=== PATIENT | female | born 1960 | race Caucasian/White ===

== ENCOUNTER 2019-10-31 15:18 | Outpatient (CLI) | payer OTHER, SELFPAY ==
--- NOTE | ~2019-10-31 | US_ITS ---
EXAMINATION: US thyroid DATE: 10/31/2019 15:54 INDICATION: Localized swelling, mass, and lump, neck. TECHNIQUE: Multiple ultrasound images of the thyroid were obtained. COMPARISON: None. FINDINGS: The right thyroid lobe measures 3.5 x 1.4 x 1.0 cm. The left thyroid lobe measures 8.4 x 2.5 x 3.5 c m. In the right thyroid lobe, there is a 10 mm solid, hypoechoic, rhkpb-oacl-gpax nodule with lobula jefe margin without echogenic foci (TI-RADS TR4). The left thyroid lobe is replaced by a nodule or con fluence of nodules that is/are solid, isoechoic, and cnjdy-sqpf-sadd without echogenic foci (TR3). IMPRESSION: 1. Thyroid nodules. Ultrasound-guided fine-needle aspiration of the left thyroid nodule is recommende d. Reviewed, dictated and finalized at location A. IMPRESSION: 1. Thyroid nodules. Ultrasound-guided fine-needle aspiration of the left thyroi d nodule is recommended.
== END 2019-10-31 15:19 | disposition home or self-care (01) ==
DX: R22.1 Localized swelling, mass and lump, neck (principal); E04.2 Nontoxic multinodular goiter
CPT/HCPCS: 76536

== ENCOUNTER 2019-11-14 13:06 | Outpatient (CLI) | payer OTHER, SELFPAY ==
--- NOTE | ~2019-11-14 | US_ITS ---
EXAMINATION: US FNA w image guidance DATE: 11/14/2019 14:07 INDICATION: Left thyroid mass TECHNIQUE: A time-out was performed to verify the patient's name, date of , and procedure to be performed . The procedure and its benefits and risks were discussed with the patient. Risks specifically discus sed included bleeding and infection. The patient understood the risks and agreed to proceed. The neck was prepped and draped in the usual sterile manner. 4 mL 1% lidocaine was used for local anesthesia . 6 passes were made with a 25G needle into the lesion. Appropriate needle location was documented with continuous sonographic guidance. The specimens were passed to the environmental health technologist in the room. A sterile bandage was applied. There were no immediate complications. FINDINGS: Grayscale ultrasound images demonstrate biopsy needles advanced into a large isoechoic solid mass occ upying the majority of the left thyroid lobe. IMPRESSION: 1. Successful ultrasound-guided fine needle aspiration of the previous noted large TI-RADS 3 mass oc cupying the majority left thyroid lobe. Reviewed, dictated and finalized at location A. IMPRESSION: 1. Successful ultrasound-guided fine needle aspiration of the previous noted l arge TI-RADS 3 mass occupying the majority left thyroid lobe.
== END 2019-11-14 13:07 | disposition home or self-care (01) ==
LOC: ANHIMG 13:17
DX: E04.1 Nontoxic single thyroid nodule (principal)
CPT/HCPCS: 10005; 88173; 88305

== ENCOUNTER 2021-01-28 14:14 | Outpatient (CLI) | payer OTHER, SELFPAY ==
--- NOTE | ~2021-01-28 | MM_ITS ---
EXAMINATION: MM screening radhika BI w denisse HISTORY: Screening mammogram TECHNIQUE: Craniocaudal and mediolateral oblique 3-D tomosynthesis images were obtained and synthetic 2-D images were generated. CAD analysis was submitted and interpreted. COMPARISON: 10/17/2016, 12/18/2011 bilateral screening mammogram examinations BREAST PARENCHYMAL COMPOSITION: The breasts are almost entirely fatty. FINDINGS: There is no evidence of suspicious mass, calcification, or architectural distortion to sugg est malignancy in either breast. There has been no suspicious interval change. IMPRESSION: 1. No mammographic evidence of malignancy. 2. Recommend routine screening mammography in one year. BI-RADS Category 1: Negative Reviewed, dictated and finalized at location A. HAULER
== END 2021-01-28 14:15 | disposition home or self-care (01) ==
LOC: ANHIMG 14:19
DX: Z12.31 Encounter for screening mammogram for malignant neoplasm of breast (principal)
CPT/HCPCS: 77063; 77067

== ENCOUNTER 2021-11-04 15:26 | Outpatient (CLI) | payer OTHER, SELFPAY ==
--- NOTE | ~2021-11-04 | US_ITS ---
EXAMINATION: US thyroid DATE: 11/04/2021 16:02 INDICATION: Thyroid nodule. TECHNIQUE: Multiple ultrasound images of the thyroid were obtained. COMPARISON: Ultrasound 10/31/2019 FINDINGS: The right thyroid lobe measures 3.8 x 1.4 x 1.2 cm. The left thyroid lobe measures 9.7 x 4.5 x 3.0 c m. In the right thyroid lobe, there is a 10 mm solid, hypoechoic, wider than tall nodule with smooth margin without echogenic foci (TI-RADS TR4), stable from 10/31/19. The left thyroid lobe is replaced b y a nodule or confluence of nodules that is/are solid, isoechoic, and wider than tall without echogen ic foci (TR3). Biopsy on 11/14/2019 was benign. IMPRESSION: 1. Stable multinodular goiter. Consider thyroid ultrasound in one year. Reviewed, dictated and finalized at location A.
== END 2021-11-04 15:27 | disposition home or self-care (01) ==
DX: E04.2 Nontoxic multinodular goiter (principal)
CPT/HCPCS: 76536

== ENCOUNTER → 2023-10-10 10:22 | Outpatient (REF) | payer OTHER, SELFPAY | LOC: ANHLAB 10:22 | PROVIDERS: Visit Provider Plastic Surgery | DX: D03.59 Melanoma in situ of other part of trunk (principal) | CPT/HCPCS: 88305; 88342 ==